=== PATIENT | female | born 1945 | race Caucasian/White ===

== ENCOUNTER 2016-12-31 10:09 | Emergency (ER) | payer MEDICARE, SELFPAY | END 2016-12-31 14:40 | disposition short-term general hospital (02) | LOC: ER 10:09 | DX: K92.2 Gastrointestinal hemorrhage, unspecified (principal); D50.0 Iron deficiency anemia secondary to blood loss (chronic); D68.9 Coagulation defect, unspecified; I95.9 Hypotension, unspecified; R11.2 Nausea with vomiting, unspecified; I10 Essential (primary) hypertension; E03.9 Hypothyroidism, unspecified; F17.210 Nicotine dependence, cigarettes, uncomplicated; Z79.01 Long term (current) use of anticoagulants; Z79.82 Long term (current) use of aspirin; Z79.899 Other long term (current) drug therapy; Z91.041 Radiographic dye allergy status | CPT/HCPCS: 36415; 36430; 51702; 96361; 96374; J1940; P9017; P9021 ==

== ENCOUNTER 2017-02-14 13:53 | Emergency (ER) | payer MEDICARE, OTHER | END 2017-02-14 21:28 | disposition short-term general hospital (02) | LOC: ER 13:53 | DX: I95.9 Hypotension, unspecified (principal); K92.2 Gastrointestinal hemorrhage, unspecified; D68.9 Coagulation defect, unspecified; N28.9 Disorder of kidney and ureter, unspecified; E03.9 Hypothyroidism, unspecified; D64.9 Anemia, unspecified; I25.10 Atherosclerotic heart disease of native coronary artery without angina pectoris; F17.210 Nicotine dependence, cigarettes, uncomplicated; Z79.82 Long term (current) use of aspirin; Z79.01 Long term (current) use of anticoagulants; Z79.899 Other long term (current) drug therapy; Z91.041 Radiographic dye allergy status | CPT/HCPCS: 36415; 36430; 96361; 96374; P9021 ==